=== PATIENT | female | born 1990 | race Caucasian/White ===

== ENCOUNTER 2017-06-16 09:12 | Emergency (ER) | payer SELFPAY ==
[~2017-06-16] VITALS: Ht 160 cm; Wt 99.8 kg
[2017-06-16 09:54] VITALS: BP 143/86
[2017-06-16] MEDS ORDERED: ONDANSETRON HCL 4 MG/2 ML VIAL IM ONE (10:00)
[2017-06-16] MEDS ORDERED: HYDROmorphone HCL 2 MG/ML VL IM ONE (10:00)
[2017-06-16] MEDS ORDERED: METHOCARBAMOL 500 MG TAB PO ONE (10:00)
== END 2017-06-16 10:26 | disposition home or self-care (01) ==
LOC: ER 09:12
DX: S39.012A Strain of muscle, fascia and tendon of lower back, initial encounter (principal); N39.0 Urinary tract infection, site not specified; Z86.011 Personal history of benign neoplasm of the brain; Z88.8 Allergy status to other drugs, medicaments and biological substances; X50.0XXA Overexertion from strenuous movement or load, initial encounter; Y93.89 Activity, other specified; Y99.8 Other external cause status; Y92.22 Religious institution as the place of occurrence of the external cause
CPT/HCPCS: 81002; 96372; 99284; J1170; J2405

== ENCOUNTER 2017-06-23 10:01 | Emergency (ER) | payer SELFPAY ==
[~2017-06-23] VITALS: Ht 157.5 cm; Wt 99.8 kg
[2017-06-23 16:55] LABS: Basophils # (auto) 0 uL; Basophils % (auto) 0.3 % (0.0-2.0); CONDITION Y; Eosinophils # (auto) 0.1 uL; Eosinophils % (auto) 0.7 % (0.0-7.0); Hematocrit 45.8 % (36.0-46.0); Hemoglobin 15.7 g/dL (12.2-16.2); Lymphocytes # (auto) 3.5 uL; Lymphocytes % (auto) 30.9 % (10.0-50.0); Mean Corpuscular Hemoglobin 29.3 pg (28.0-32.0); Mean Corpuscular Hgb Conc. 34.3 g/dL (32.0-36.0); Mean Corpuscular Volume 85.4 fL (80.0-100.0); Mean Platelet Volume 8.1 fL (7.4-10.4); Monocytes # (auto) 0.6 uL; Monocytes % (auto) 5.3 % (0.0-12.0); Neutrophils # (auto) 7.1 uL; Neutrophils % (auto) 62.8 % (37.0-80.0); Platelet Count (auto) 385 10^3/uL (140-450); Red Cell Distribution Width 12.3 % (11.6-16.0); White Blood Cell 11.3 10^3/uL (4.4-10.8)
[2017-06-23 17:05] LABS: Albumin 4.2 g/dL (3.4-5.0); BUN/Creatinine Ratio 17.6; Calcium 9.8 mg/dL (8.5-10.1); Potassium 4.2 mmol/L (3.5-5.1)
[2017-06-23 17:08] LABS: Bilirubin, Total 0.8 mg/dL (0.2-1.0); Total Protein 7.4 g/dL (6.4-8.2)
[2017-06-23 20:05] LABS: Urine Bilirubin Negative (Negative); Urine Blood Negative /uL (Negative); Urine Color Yellow (Yellow); Urine Glucose Normal (Normal); Urine Ketone TRACE (Negative); Urine Mucus FEW (None Seen); Urine Nitrite Negative (Negative); Urine RBC 1 /hpf (0 - 4); Urine Squamous Epithelial Cell MANY /hpf (<5); Urine Urobilinogen Normal (Negative); Urine pH 5.5 (5.0-8.0)
[2017-06-23] MEDS ORDERED: HYDROcodone-ACET 10/325MG TAB PO ONE (20:15)
[2017-06-23 22:18] VITALS: BP 108/57
[2017-06-23] MEDS ORDERED: HYDROmorphone HCL 2 MG/ML VL IM ONE (22:30)
[2017-06-23] MEDS ORDERED: ONDANSETRON ODT 4 MG TAB PO ONE (22:30)
== END 2017-06-23 23:06 | disposition home or self-care (01) ==
LOC: ER 10:08
DX: S30.0XXA Contusion of lower back and pelvis, initial encounter (principal); Z88.8 Allergy status to other drugs, medicaments and biological substances; F17.210 Nicotine dependence, cigarettes, uncomplicated; W01.0XXA Fall on same level from slipping, tripping and stumbling without subsequent striking against object, initial encounter; Y93.89 Activity, other specified; Y92.89 Other specified places as the place of occurrence of the external cause; Y99.8 Other external cause status
CPT/HCPCS: 36415; 72131; 80053; 81001; 81025; 85025; 96372; 99285; J1170; Q0162

== ENCOUNTER 2019-11-09 00:33 | Emergency (ER) | payer MEDICAID ==
[~2019-11-09] VITALS: Ht 162.6 cm; Wt 113.4 kg
[2019-11-09] MEDS ORDERED: ACETAMINOPHEN 325 MG TAB PO ONE ×2 (02:45)
[2019-11-09] MEDS ORDERED: IBUPROFEN 800 MG TAB PO ONE (02:45)
[2019-11-09] MEDS ORDERED: ACETAMINOPHEN 500 MG TAB PO ONE (02:45)
[2019-11-09 02:47] VITALS: BP 132/83
== END 2019-11-09 03:13 | disposition home or self-care (01) ==
LOC: ER 00:36
DX: S97.81XA Crushing injury of right foot, initial encounter (principal); F17.210 Nicotine dependence, cigarettes, uncomplicated; F15.10 Other stimulant abuse, uncomplicated; Z88.8 Allergy status to other drugs, medicaments and biological substances; X58.XXXA Exposure to other specified factors, initial encounter; Y93.89 Activity, other specified; Y99.8 Other external cause status; Y92.89 Other specified places as the place of occurrence of the external cause
CPT/HCPCS: 73630